=== PATIENT | male | born 1945 | race Caucasian/White ===

== ENCOUNTER 2016-10-20 06:59 | Inpatient (IN) ==
[2016-10-16 12:35] LABS: Basophils # (Auto) 0 K/mcL (0.0-0.3); Basophils % (Auto) 0.4 % (0.0-2.0); Eosinophils # (Auto) 0.2 K/mcL (0.0-0.7); Eosinophils % (Auto) 2.5 % (0.0-7.0); Granulocytes % (Auto) 67.6 % (38.0-78.0); Lymphocytes # (Auto) 1.6 K/mcL (1.5-4.8); Lymphocytes % (Auto) 17.9 % (15.5-49.0); Mean Cell Volume 91.2 fL (80.0-100.0); Mean Corpuscular HGB Conc 32.2 g/dL (31.0-36.0); Mean Corpuscular Hemoglobin 29.4 pg (26.0-34.0); Monocytes % (Auto) 11.6 % (1.0-9.0); Platelet Count 306 K/mcL (140-440); RBC 4.91 M/mcL (4.50-5.90); Red Cell Distribution Width 14.3 % (11.5-14.5)
[2016-10-16 12:39] LABS: Appearance,Urine CLEAR; Bilirubin,Urine NEG (NEG); Color,Urine YELLOW; Glucose,Urine (UA) NEGATIVE (NEG); Leukocyte Esterase,Urine NEG /uL (NEG); Nitrate,Urine NEG (NEG); Protein,Urine NEG (NEG); Specific Gravity,Urine 1.017 (1.000-1.035); Urine Blood NEG mg/dL (<0.03); Urobilinogen,Urine NEG (NEG)
[2016-10-16 12:42] LABS: Blood Urea Nitrogen 21 mg/dl (8-23)
[~2016-10-20 06:59] MED LIST: ACETAMINOPHEN 500 MG TABLET PO SCH; CELECOXIB 200 MG CAPSULE PO SCH; KETOROLAC 30 MG, ROPIVACAINE HCL/PF 49.5 ML, EPINEPHrine 0.5 MG, 0.9 % SODIUM CHLORIDE ... IJ SCH; PREGABALIN 150 MG CAPSULE PO SCH; ceFAZolin 1 GM VIAL IV SCH; oxyCODONE 10 MG TAB.ER.12H PO SCH
[2016-10-20] MEDS ORDERED: ONDANSETRON 4 MG/2 ML VIAL IV ONE (10:15)
[2016-10-20] MEDS ORDERED: DEXAMETHASONE 10 MG/ML VIAL IV ONE (10:15)
[2016-10-20] MEDS ORDERED: ePHEDrine 50 MG/ML AMPUL IV ONE (10:15)
[2016-10-20] MEDS ORDERED: MIDAZOLAM 5 MG/5 ML VIAL IV ONE (10:15)
[2016-10-20] MEDS ORDERED: LIDOCAINE HCL/PF 100 MG/5 ML SYRINGE IV ONE (10:15)
[2016-10-20] MEDS ORDERED: ROPIVACAINE HCL/PF 30 ML VIAL IJ ONE (10:15)
[2016-10-20] MEDS ORDERED: fentaNYL 100 MCG/2 ML VIAL IV ONE (10:15)
[2016-10-20] MEDS ORDERED: GLYCOPYRROLATE 0.2 MG/ML VIAL IV ONE (10:15)
[2016-10-20] MEDS ORDERED: PROPOFOL 200 MG/20 ML VIAL IV ONE (10:15)
[2016-10-20] MEDS ORDERED: TRANEXAMIC ACID 1,000 MG/10 ML VIAL IV ONE ×2 (10:15→12:06)
[2016-10-20] MEDS ORDERED: GENTAMICIN SULFATE 800 MG/20 ML VIAL IR ONE (11:07)
[2016-10-20] MEDS ORDERED: FLUMAZENIL 0.1 MG/ML ML IV PRN (11:40)
[2016-10-20] MEDS ORDERED: ATROPINE SULFATE 0.4 MG/ML VIAL IV PRN (11:40)
[2016-10-20] MEDS ORDERED: IPRATROPIUM/ALBUTEROL 3 ML AMPUL.NEB NEB PRN (11:40)
[2016-10-20] MEDS ORDERED: PROMETHAZINE 25 MG/ML VIAL IV PRN (11:40)
[2016-10-20] MEDS ORDERED: NALOXONE HCL 0.4 MG/ML VIAL IV PRN (11:40)
[2016-10-20] MEDS ORDERED: METHOCARBAMOL 1,000 MG/10 ML VIAL IV PRN (11:40)
[2016-10-20] MEDS ORDERED: ePHEDrine 50 MG/ML AMPUL IV PRN (11:40)
[2016-10-20] MEDS ORDERED: HYDROmorphone 2 MG/ML SYRINGE IV PRN ×2 (11:40→12:06)
[2016-10-20] MEDS ORDERED: MEPERIDINE 25 MG/ML SYRINGE IV PRN (11:40)
[2016-10-20] MEDS ORDERED: fentaNYL 100 MCG/2 ML VIAL IV PRN (11:40)
[2016-10-20] MEDS ORDERED: ONDANSETRON 4 MG/2 ML VIAL IV PRN ×2 (11:40→12:06)
[2016-10-20] MEDS ORDERED: BENZOCAINE/MENTHOL 1 LOZENGE PO PRN ×2 (11:40→12:06)
[2016-10-20] MEDS ORDERED: diphenhydrAMINE 50 MG/ML VIAL IV PRN (11:40)
[2016-10-20] MEDS ORDERED: METOPROLOL TARTRATE 5 MG/5 ML VIAL IV PRN (11:40)
[2016-10-20] MEDS ORDERED: LACTATED RINGERS 1,000 ML IV SCH (11:45)
[2016-10-20] MEDS ORDERED: MAGNESIUM HYDROXIDE 30 ML ORAL.SUSP PO PRN (12:06)
[2016-10-20] MEDS ORDERED: BISACODYL 10 MG SUPP.RECT PR PRN (12:06)
[2016-10-20] MEDS ORDERED: FLEETS ADULT ENEMA PR PRN (12:06)
[2016-10-20] MEDS ORDERED: POLYETHYLENE GLYCOL 3350 17 GM PACKET PO PRN (12:06)
[2016-10-20] MEDS ORDERED: TEMAZEPAM 15 MG CAPSULE PO PRN (12:06)
[2016-10-20] MEDS ORDERED: ACETAMINOPHEN 325 MG TABLET PO PRN (12:06)
--- NOTE | 2016-10-20 12:11 | Brief Operative Note ---
Date of procedure: 10/20/16 Pre-op diagnosis: Right knee djd Post-op diagnosis: same Procedure: right total knee djd Grafts/Implants: Yes Anesthesia: GETA Findings: djd right Complications: none Surgeon: Dre Sagastume Residential Program Worker: Frank Bean Estimated blood loss (cc): 20 Tourniquet Time (Minutes): 65 Specimens Removed/Pathology: none sent Condition: stable Disposition: PACU
--- NOTE | 2016-10-20 12:51 | Operative Note ---
DATE OF OPERATION: 10/20/2016 PREOPERATIVE DIAGNOSIS: Right knee degenerative arthritis, severe in all three compartments. POSTOPERATIVE DIAGNOSIS: Right knee degenerative arthritis, severe in all three compartments. PROCEDURE: Right total knee arthroplasty using the [employer] robot. SURGEON: Dre Sagastume MD ASSOCIATE CIVIL ENGINEER: Frank Bean PA-C ANESTHESIA: General LMA anesthesia. COMPLICATIONS: None. BLOOD LOSS: About 20 mL. TOTAL TOURNIQUET TIME: 65 minutes. Tourniquet pressure 250 mL pounds. IMPLANTS PLACED: Cemented Size 5 femur and size 5 tibial baseplate with an 11 mm poly insert. The patient was perfectly balanced at 19 mm, both flexion and extension. Rotation of the implant per robot. DESCRIPTION OF PROCEDURE: The patient was brought to the operating room and put to sleep with general LMA anesthesia. The patient tolerated this well without complication. We then made a mid vastus approach, placed pins above and below the knee after we confirmed arthritis in all three compartments. Once done, we then registered the 30 points center of hip rotation, medial and lateral malleoli. All 30 points on the femur and tibia were registered. Intra-articular pins were placed and we registered the robot at all points. Once this was done, we balanced the knee both flexion, extension and mid flexion. Using the robot we placed a 19 mm gap in both flexion and extension and this was balanced by using the robot to move the implants prior to the surgery. Once perfectly balanced these cuts were made by the robot both the distal femur and anterior, posterior chamfer cuts and then the proximal tibia cut. Bony fragments were removed and then we removed the remnants of the meniscus, removed osteophytes posteriorly. We preserved the posterior cruciate ligament. Once we trialed the component and set the rotation with the robot for the tibial baseplate, which was punched into place, we then prepared the patella. Total thickness was 24 mm. We then cut this to 15 mm and placed a 9 mm thick patellar button. Because of the size of the cyst that was in the patella we then put extra cement in this region. We cemented into place the above-mentioned sizes with femur, tibia and an 11 mm poly, 33 mm patellar button. Excess cement was removed. We kept the knee at 45 degrees until everything was dried. We then reinspected the joint for any loose fragments. These implants fit very well. The balance both flexion, extension and varus valgus were perfectly realigned. Patient tolerated this well. Tourniquet deflated at 65 minutes. DUDLEY:baljinder Job ID: [id number] Doc ID: [id number] Dre Sagastume MD
--- NOTE | 2016-10-20 13:04 | XRay Report ---
CLINICAL INFORMATION: Status post right knee replacement surgery TECHNIQUE: AP and crosstable lateral right knee COMPARISON: None. FINDINGS: Status post right total knee arthroplasty. Tibial and femoral complements are in anatomic positions. Mild postsurgical soft tissue gas and intra-articular effusion. IMPRESSION: Status post right total knee arthroplasty Interpreted and Authenticated by: Boaz Navarro 10/20/16
[2016-10-20] MEDS: HYDROcodone/APAP 10/325MG TABLET PO PRN (14:43)
[2016-10-20] MEDS: 0.9 % SODIUM CHLORIDE 10 ML SYRINGE IV SCH ×2 (14:45→21:41)
[2016-10-20] MEDS: 0.45 % SODIUM CHLORIDE 1,000 ML IV SCH ×3 (17:41→20:14)
[2016-10-20] MEDS: KETOROLAC 15 MG/ML VIAL IV SCH (17:41)
[2016-10-20] MEDS: ceFAZolin 1 GM VIAL IV SCH (17:56)
[2016-10-20] MEDS: DOCUSATE SODIUM 100 MG CAPSULE PO SCH (20:11)
[2016-10-20] MEDS: oxyCODONE 10 MG TAB.ER.12H PO SCH (20:11)
[2016-10-20] MEDS: SENNOSIDES 1 TABLET PO SCH (20:11)
[2016-10-20] MEDS: ASPIRIN 325 MG ENTERIC COATED TABLET PO SCH (20:11)
[2016-10-21] MEDS: KETOROLAC 15 MG/ML VIAL IV SCH ×5 (00:03→23:02)
[2016-10-21] MEDS: ceFAZolin 1 GM VIAL IV SCH (01:41)
[2016-10-21] MEDS: 0.45 % SODIUM CHLORIDE 1,000 ML IV SCH ×4 (02:03→20:11)
[2016-10-21] MEDS: 0.9 % SODIUM CHLORIDE 10 ML SYRINGE IV SCH ×3 (05:56→22:24)
--- NOTE | 2016-10-21 07:47 | Orthopedic Progress Note ---
Subjective Patient information: Note initiated : 10/21/16 at 7:47 am Service Date, if different from initiated Date: [] Patient: Candace Wakefield 70 y/o M admitted on 10/20/16 for Right Total Knee Arthroplasty - [place]. Chief Complaint: [Pt is stable this morning on post operative day 1 without any significant concerns or complaints. Patients vital signs have remained stable. Patients dressing is dry and exhibits a grossly intact neurovascular and neuromotor exam. Patients 10 point ROS is otherwise negative. ] Objective Vital signs: Vital Signs Temp Pulse Resp BP BP Pulse Ox 10/21/16 07:39 97.7 F 67 14 116/73 95 10/21/16 04:00 98.3 F 66 12 108/67 95 10/21/16 00:00 97.4 F L 68 12 118/71 96 10/20/16 20:00 97.2 F L 79 12 128/78 94 10/20/16 16:06 95 10/20/16 15:00 79 143/91 94 10/20/16 14:45 78 135/86 97 10/20/16 14:30 75 143/80 94 10/20/16 14:15 72 135/75 95 10/20/16 14:00 70 150/85 95 10/20/16 13:50 97 10/20/16 13:45 67 157/92 95 10/20/16 13:42 62 152/87 90 10/20/16 13:30 71 144/87 96 10/20/16 13:15 72 160/87 96 10/20/16 12:55 97.3 F L 90 16 168/89 96 10/20/16 12:46 72 12 123/74 96 10/20/16 12:40 64 12 125/69 95 10/20/16 12:35 66 12 126/75 95 10/20/16 12:30 66 13 126/74 95 10/20/16 12:24 97.8 F 72 14 123/76 95 Intake and Output 10/20/16 10/21/16 10/21/16 21:59 05:59 13:59 Intake Total 900 / 900 1900 / 1900 Output Total 350 / 350 2750 / 2750 900 / 900 Balance 550 / 550 -850 / -850 -900 / -900 Intake: IV 1000 / 1000 Sodium Chloride 0.45% 1, 1000 / 1000 000 ml @ 125 mls/hr IV . Q8H [place] Rx#:[id number] Oral 900 / 900 900 / 900 Output: Void Amount 350 / 350 2750 / 2750 900 / 900 Other: Meal Dinner Percent of Meal Consumed 100% Weight 221 lb Intake & Output: Intake & Output 10/20/16 10/21/16 10/21/16 21:59 05:59 13:59 Intake Total 900 / 900 1900 / 1900 Output Total 350 / 350 2750 / 2750 900 / 900 Balance 550 / 550 -850 / -850 -900 / -900 Weight 221 lb Intake: IV 1000 / 1000 Sodium Chloride 0.45% 1, 1000 / 1000 000 ml @ 125 mls/hr IV . Q8H [place] Rx#:[id number] Oral 900 / 900 900 / 900 Output: Void Amount 350 / 350 2750 / 2750 900 / 900 Other: Meal Dinner Percent of Meal Consumed 100% Incision: Yes healing Incision clean and dry: Yes Dressing: Yes clean, Yes dry Weight bearing status: full Neurological exam IM: Yes motor sensory intact, Yes neurovascular intact Extremities exam IM: Yes Foot pink and warm, Yes neurovascular intact - Labs CBC & BMP: 10/21/16 05:25 10/16/16 10:19 Labs: Orthopedic Labs 10/16/16 10:20 PT 13.2 INR 1.0 APTT 24 10/21/16 10/16/16 05:25 10:20 Hgb 14.4 Hct 35.8 L 44.8 Assessment and Plan (1) Hx of total knee arthroplasty Patient has been educated regarding wound care and dressings, follow up recommendations, and medication use. We will f/u with the patient within 2-3 weeks for wound check. Status: Acute
--- NOTE | 2016-10-21 07:50 | Discharge Summary ---
Ortho Discharge - TKA - Patient Instructions Diet: Regular Diet Activity: activity as tolerated, weight bearing as tolerated Total Knee Protocol: For Total Knee: Start ROM CORRIE with stationary bike or rocking chair. Work on gaining full extension of knee. Posterior dislocation precautions provided. Hip abductor strengthening and gait training instructions provided. Apply Cryocuff as instructed. Dressing Care: May shower in 3 days Additional Instructions: Do the exercises at home that Physical therapy gave you. Wear comfortable clothes . Take photo ID and insurance cards with you to physical therapy and to poultry picker any equipment such as crutches walker, toilet riser or C.P.M. Consider taking pain meds 45 min before physical therapy appointment. You have Dermabond (a dressing with a mesh-like appearance), leave open to air. You may start showering on post op day #2. The Dermabond dressing can get wet, do not scrub dressing. Pat dry. Use over the counter stool softeners or laxatives to avoid constipation associated with narcotic use. Use your Cryocuff or ice packs as directed, on for 20 minutes at a time throughout the day. This and elevation will help with pain and swelling. Call your physician for fever greater than 100.5 or pain not controlled by medication. Your prescriptions are with your discharge information. Some medications were electronically transmitted to your pharmacy of choice. - Problem Maintenance (1) Hx of total knee arthroplasty Status: Acute - Follow Up Plan Follow Up Appointments: Dre Sagastume MD [Physician] - 11/04/16 9:20 am Disposition: Xfer SNF Prognosis: Good Rehab Potential: Good I certify that the patient requires SNF services: Yes Overall status at discharge: patient is progressing back to baseline - Orders For Discharge Prescriptions: Aspirin [Ecotrin] 325 mg PO BID #60 tab.ec Docusate Sodium [Colace] 100 mg PO BID #60 capsule HYDROcodone/APAP 10/325MG [[place] 10/325Mg] 1 - 2 tab PO Q4HP PRN #75 tablet PRN Reason: Pain
--- NOTE | 2016-10-21 08:05 | Discharge Summary ---
Ortho Discharge - TKA - Patient Instructions Diet: Regular Diet Activity: activity as tolerated, weight bearing as tolerated Total Knee Protocol: For Total Knee: Start ROM CORRIE with stationary bike or rocking chair. Work on gaining full extension of knee. Posterior dislocation precautions provided. Hip abductor strengthening and gait training instructions provided. Apply Cryocuff as instructed. Dressing Care: May shower in 2 days Additional Instructions: Do the exercises at home that Physical therapy gave you. Wear comfortable clothes . Take photo ID and insurance cards with you to physical therapy and to spanish moss picker any equipment such as crutches walker, toilet riser or C.P.M. Consider taking pain meds 45 min before physical therapy appointment. You have Dermabond (a dressing with a mesh-like appearance), leave open to air. You may start showering on post op day #2. The Dermabond dressing can get wet, do not scrub dressing. Pat dry. Use over the counter stool softeners or laxatives to avoid constipation associated with narcotic use. Use your Cryocuff or ice packs as directed, on for 20 minutes at a time throughout the day. This and elevation will help with pain and swelling. Call your physician for fever greater than 100.5 or pain not controlled by medication. Your prescriptions are with your discharge information. Some medications were electronically transmitted to your pharmacy of choice. - Problem Maintenance (1) Hx of total knee arthroplasty Status: Acute - Follow Up Plan Follow Up Appointments: Dre Sagastume MD [Physician] - 11/04/16 9:20 am Disposition: Home, Self-Care Prognosis: Good Rehab Potential: Good I certify that the patient requires SNF services: Yes Overall status at discharge: patient is progressing back to baseline - Orders For Discharge Prescriptions: Aspirin [Ecotrin] 325 mg PO BID #60 tab.ec Docusate Sodium [Colace] 100 mg PO BID #60 capsule HYDROcodone/APAP 10/325MG [[place] 10/325Mg] 1 - 2 tab PO Q4HP PRN #75 tablet PRN Reason: Pain
[2016-10-21] MEDS: ASPIRIN 325 MG ENTERIC COATED TABLET PO SCH ×2 (09:01→21:10)
[2016-10-21] MEDS: DOCUSATE SODIUM 100 MG CAPSULE PO SCH ×2 (09:01→21:11)
[2016-10-21] MEDS: oxyCODONE 10 MG TAB.ER.12H PO SCH ×2 (09:01→21:10)
[2016-10-21] MEDS: HYDROcodone/APAP 10/325MG TABLET PO PRN ×2 (15:26→22:22)
[2016-10-21] MEDS: SENNOSIDES 1 TABLET PO SCH (21:11)
[2016-10-22] MEDS: 0.45 % SODIUM CHLORIDE 1,000 ML IV SCH (05:09)
[2016-10-22] MEDS: 0.9 % SODIUM CHLORIDE 10 ML SYRINGE IV SCH (05:09)
[2016-10-22] MEDS: KETOROLAC 15 MG/ML VIAL IV SCH (05:57)
[2016-10-22] MEDS: HYDROcodone/APAP 10/325MG TABLET PO PRN (06:56)
[2016-10-22] MEDS: DOCUSATE SODIUM 100 MG CAPSULE PO SCH (08:43)
[2016-10-22] MEDS: ASPIRIN 325 MG ENTERIC COATED TABLET PO SCH (08:43)
== END 2016-10-22 12:30 | disposition home or self-care (01) | DRG 470 ==
LOC: MEDSUR 06:59
PROVIDERS: ADMIT Orthopaedic Surgery; ATTEND Orthopaedic Surgery